=== PATIENT | male | born 1990 | race Asian ===

== ENCOUNTER 2018-08-18 02:43 | Inpatient (IN) | payer SELFPAY ==
[2018-08-18] MEDS ORDERED: MORPHINE SULFATE 10 MG/ML INJ IV ONE ×2 (06:28→10:51)
[2018-08-18] MEDS ORDERED: ONDANSETRON HCL INJ/PF 4 MG/2 ML SDV IV ONE ×2 (06:28→10:51)
[2018-08-18] MEDS ORDERED: NORMAL SALINE 1000 ML 1,000 ML IV ONE ×3 (06:28→08:20)
--- NOTE | 2018-08-18 06:41 | ER Document Report ---
Entered by MILAN POLLACK SCRIBE 08/18/18 0636 Acting as scribe for:RANDY HUNTER MD ED General - General Chief Complaint: Abdominal Pain Stated Complaint: STOMACH PAIN Time Seen by Provider: 08/18/18 06:11 Mode of Arrival: Ambulatory Information source: Patient Notes: Patient is a 28 year old male with a history of gastroschisis repair presents to the emergency department complaining of abdominal pain and nausea onset 2 days ago. Patient states the pain is located around is old surgical site and describes the pain as "extreme" that is exacerbated with coughing and walking. He states he has not eaten in the last 24 hours. He also reports a normal, small bowel movement before arrival to the emergency department. He denies any vomiting or fevers. TRAVEL OUTSIDE OF THE [place] IN LAST 30 DAYS: No - Related Data Allergies/Adverse Reactions: No Known Allergies Allergy (Unverified 08/18/18 06:28) Past Medical History - General Information source: Patient - Social History Smoking Status: Current Some Day Smoker Cigarette use (# per day): Yes Chew tobacco use (# tins/day): No Frequency of alcohol use: None Drug Abuse: None Occupation: Cellphone avionic technician Family History: Reviewed & Not Pertinent Patient has suicidal ideation: No Patient has homicidal ideation: No Past Surgical History: Reports: Hx Abdominal Surgery - gastroschisis repair as Review of Systems - Review of Systems Constitutional: No symptoms reported EENT: No symptoms reported Cardiovascular: No symptoms reported Respiratory: No symptoms reported Gastrointestinal: See HPI, Abdominal pain, Nausea Genitourinary: No symptoms reported Male Genitourinary: No symptoms reported Musculoskeletal: No symptoms reported Skin: No symptoms reported Hematologic/Lymphatic: No symptoms reported Neurological/Psychological: No symptoms reported -: Yes All other systems reviewed and negative Physical Exam - Vital signs Vitals: Temp Pulse Resp BP Pulse Ox 98.5 F 106 H 20 146/86 H 95 08/18/18 03:00 08/18/18 03:00 08/18/18 03:00 08/18/18 03:00 08/18/18 03:00 - Notes Notes: GENERAL: Alert, interacts well. No acute distress. HEAD: Normocephalic, atraumatic. EYES: Pupils equal, round, and reactive to light. Extraocular movements intact. ENT: Oral mucosa moist, tongue midline. NECK: Full range of motion. Supple. Trachea midline. LUNGS: Clear to auscultation bilaterally, no wheezes, rales, or rhonchi. No respiratory distress. HEART: Regular rate and rhythm. No murmurs, gallops, or rubs. ABDOMEN: Soft. Diffusely tender to palpation, worse in the RLQ with rebounding. Non-distended. Markedly decreased bowel sounds. Resonant to percussion. No guarding or rigidity. EXTREMITIES: Moves all 4 extremities spontaneously. NEUROLOGICAL: Alert and oriented x3. Normal speech. PSYCH: Normal affect, normal mood. SKIN: Warm, dry, normal turgor. No rashes or lesions noted. Course - Vital Signs Vital signs: Temp Pulse Resp BP Pulse Ox 98.5 F 106 H 18 133/98 H 97 08/18/18 03:00 08/18/18 03:00 08/18/18 09:27 08/18/18 08:01 08/18/18 09:25 - Laboratory Result Diagrams: 08/18/18 06:35 08/18/18 06:35 Laboratory results interpreted by me: 08/18/18 08/18/18 08/18/18 06:35 06:35 07:40 WBC 14.1 H RBC 5.56 H Hgb 17.9 H Hct 51.6 H Seg Neutrophils % 83.0 H Lymphocytes % 11.1 L Absolute Neutrophils 11.7 H Glucose 121 H Calcium 10.4 H Albumin 5.1 H Urine Protein 30 H Urine Ketones TRACE H - Diagnostic Test Radiology reviewed: Image reviewed, Reports reviewed - Acute abdominal series showed multiple air-fluid levels suggesting possible small bowel obstruction. CT scan of the abdomen pelvis with oral and IV contrast shows partial small bowel obstruction and malrotation of the small intestine. - Consults Dr. Talbot Time consulted: 10:20 Consulted provider: will come to ER Discharge - Discharge Clinical Impression: Partial small bowel obstruction, Congenital malrotation of intestine Abdominal pain Qualifiers: Abdominal location: generalized Qualified Code(s): R10.84 - Generalized abdominal pain Condition: Stable Disposition: ADMITTED INPATIENT Admitting Provider: Surgicalist Unit Admitted: Surgical Floor Scribe Attestation: 08/18/18 06:42 I personally performed the services described in the documentation, reviewed and edited the documentation which was dictated to the scribe in my presence, and it accurately records my words and actions. I personally performed the services described in the documentation, reviewed and edited the documentation which was dictated to the scribe in my presence, and it accurately records my words and actions.
[2018-08-18] MEDS ORDERED: MORPHINE SULFATE 10 MG/ML INJ ONE (06:48)
[2018-08-18] MEDS ORDERED: ONDANSETRON HCL INJ/PF 4 MG/2 ML SDV ONE (06:48)
[2018-08-18 06:56] LABS: ABSOLUTE BASOPHILS # (AUTO) 0.1 10^3/uL (0.0-0.2); ABSOLUTE LYMPHOCYTES (AUTO) 1.6 10^3/uL (0.5-4.7); ABSOLUTE MONOCYTES (AUTO) 0.8 10^3/uL (0.1-1.4); ABSOLUTE NEUT (AUTO) 11.7 10^3/uL (1.7-8.2); BASOPHILS % (AUTO) 0.4 % (0-2); EOSINOPHILS % (AUTO) 0.1 % (0-6); HEMATOCRIT 51.6 % (37.9-51.0); HEMOGLOBIN 17.9 g/dL (13.5-17.0); LYMPHOCYTES % (AUTO) 11.1 % (13-45); MEAN CORPUSCULAR HEMOGLOBIN 32.1 pg (27.0-33.4); MEAN CORPUSCULAR HGB CONC 34.6 g/dL (32.0-36.0); MEAN CORPUSCULAR VOLUME 93 fl (80-97); MONOCYTES % (AUTO) 5.4 % (3-13); PLATELET COUNT 378 10^3/uL (150-450); RED BLOOD COUNT 5.56 10^6/uL (4.35-5.55); RED CELL DISTRIBUTION WIDTH 12.9 % (11.5-14.0); TOTAL CELLS COUNTED % (AUTO) 100 %; WHITE BLOOD COUNT 14.1 10^3/uL (4.0-10.5)
[2018-08-18 07:07] LABS: ALANINE AMINOTRANSFERASE 25 U/L (21-72); ALBUMIN 5.1 g/dL (3.5-5.0); ALKALINE PHOSPHATASE 86 U/L (38-126); ANION GAP 15 (5-19); ASPARTATE AMINO TRANSFERASE 22 U/L (17-59); BILIRUBIN,DIRECT 0.4 mg/dL (0.0-0.4); BILIRUBIN,TOTAL 0.6 mg/dL (0.2-1.3); BLOOD UREA NITROGEN 12 mg/dL (7-20); CALCIUM 10.4 mg/dL (8.4-10.2); CARBON DIOXIDE 26 mmol/L (22-30); CHLORIDE 99 mmol/L (98-107); GLUCOSE 121 mg/dL (75-110); LIPASE 49.8 U/L (23-300); POTASSIUM 4.4 mmol/L (3.6-5.0); SODIUM 139.8 mmol/L (137-145); TOTAL PROTEIN 8.1 g/dL (6.3-8.2)
--- NOTE | 2018-08-18 07:15 | RADIOLOGY REPORT (SQ) ---
EXAM: X-ray abdomen supine and erect with chest CLINICAL DATA: 28-year-old male with abdominal pain TECHNICAL DATA: Three x-ray images of the chest and abdomen were performed including a PA radiograph of the chest as well as supine and upright views of the abdomen. This study was performed on 08/18/2018 at 6:49 AM. Comparison: None. FINDINGS: The lungs are well expanded. The cardiac silhouette is within normal limits. There is no focal consolidation, pleural effusion or pneumothorax. The costophrenic sulci are clear. There are multiple borderline dilated air-filled loops of small bowel demonstrating differential air-fluid levels on the upright projection. There is no evidence of free intraperitoneal air. There does appear to be air and fecal residue in the region of the rectum. Overall, there is a paucity of air in the colon. Overall findings are concerning for a mid to distal small bowel obstruction. No pathologic abdominal or pelvic calcifications are identified. The psoas margins are preserved. There appears to be elongation of the liver suggesting possible hepatomegaly. No acute osseous abnormalities are identified. IMPRESSION: 1. No evidence of acute intrathoracic disease.. 2. Findings suspicious for a mid to distal small bowel obstruction. 3. Suspect possible hepatomegaly.
[2018-08-18 08:01] LABS: AMORPHOUS SEDIMENT,URINE TRACE /HPF; APPEARANCE,URINE SLIGHTLY-CLOUDY; BILIRUBIN,URINE NEGATIVE (NEGATIVE); COLOR,URINE AMBER; GLUCOSE, URINE NEGATIVE (NEGATIVE); KETONES,URINE TRACE mg/dL (NEGATIVE); LEUKOCYTE ESTERASE,URINE NEGATIVE (NEGATIVE); NITRITE,URINE NEGATIVE (NEGATIVE); PROTEIN,URINE 30 mg/dL (NEGATIVE); UROBILINOGEN,URINE NEGATIVE mg/dL (<2.0)
--- NOTE | 2018-08-18 10:28 | RADIOLOGY REPORT (SQ) ---
EXAM DESCRIPTION: CT ABD/PELVIS WITH IV ORAL COMPLETED DATE/TIME: 08/18/2018 10:10 am REASON FOR STUDY: SBO COMPARISON: None. TECHNIQUE: CT scan of the abdomen and pelvis performed with intravenous and oral contrast using darlene kaci scanning technique with dynamic intravenous contrast injection. Images reviewed with lung, soft t issue, and bone windows. Reconstructed coronal and sagittal MPR images reviewed. Delayed images for e valuation of the urinary system also acquired. All images stored on PACS. All CT scanners at this facility use dose modulation, iterative reconstruction, and/or weight based d osing when appropriate to reduce radiation dose to as low as reasonably achievable (ALARA). [facility]: Dose Right [facility]: CareDose [facility]: Dose Right [facility]: Teradose 4D [facility]: ShangPin CONTRAST TYPE AND DOSE: contrast/concentration: Isovue 350.00 mg/ml; Total Contrast Delivered: 87.0 ml; Total Saline Delivered: 69.0 ml RENAL FUNCTION: GFR > 60. RADIATION DOSE: CT Rad equipment meets quality standard of care and radiation dose reduction techniq ues were employed. CTDIvol: NaN - NaN mGy. DLP: 0 mGy-cm. . LIMITATIONS: None. FINDINGS: LOWER CHEST: No significant findings. No nodules or infiltrates. LIVER: Normal size. No masses. No dilated ducts. SPLEEN: Normal size. No focal lesions. PANCREAS: No masses. No significant calcifications. No adjacent inflammation or peripancreatic fluid collections. Pancreatic duct not dilated. GALLBLADDER: No identified stones by CT criteria. No inflammatory changes to suggest cholecystitis. ADRENAL GLANDS: No significant masses or asymmetry. RIGHT KIDNEY AND URETER: No solid masses. No significant calcifications. No hydronephrosis or hyd roureter. LEFT KIDNEY AND URETER: No solid masses. No significant calcifications. No hydronephrosis or hydr oureter. AORTA AND VESSELS: See below. RETROPERITONEUM: No retroperitoneal adenopathy, hemorrhage or masses. BOWEL AND PERITONEAL CAVITY: Dilated loops of small bowel with gas fluid levels. No clear transition point. Distal duodenum is not visualized to left of midline. SMA is to the right of the SMV. No a scites or free air. APPENDIX: Not visualized. PELVIS: Small amount of free fluid. ABDOMINAL WALL: No masses. No hernias. BONES: No significant or acute findings. OTHER: No other significant finding. IMPRESSION: Partial small bowel obstruction associated with intestinal malrotation. COMMENT: Findings were called to Dr. Barger. TECHNICAL DOCUMENTATION: JOB ID: [id number] Quality ID # [id number]: Final reports with documentation of one or more dose reduction techniques (e.g., Au tomated exposure control, adjustment of the mA and/or kV according to patient size, use of iterative reconstruction technique) 2010 [employer]- All Rights Reserved Reading location - IP/workstation name: [email or web address]
--- NOTE | 2018-08-18 11:30 | RADIOLOGY REPORT (SQ) ---
EXAM DESCRIPTION: CHEST SINGLE VIEW COMPLETED DATE/TIME: 08/18/2018 11:22 am REASON FOR STUDY: NG tube placement confirmation COMPARISON: None. EXAM PARAMETERS: NUMBER OF VIEWS: One view. TECHNIQUE: Single frontal radiographic view of the upper abdomen and lower chest acquired. RADIATION DOSE: NA LIMITATIONS: None. FINDINGS: Nasogastric tube tip overlies the stomach. IMPRESSION: Nasogastric tube in the stomach. TECHNICAL DOCUMENTATION: JOB ID: [id number] [employer]- All Rights Reserved Reading location - IP/workstation name: [email or web address]
[2018-08-18] MEDS ORDERED: ONDANSETRON HCL INJ/PF 4 MG/2 ML SDV IV PRN (14:50)
[2018-08-18] MEDS: MORPHINE SULFATE 10 MG/ML INJ IV PRN ×3 (16:22→23:58)
[2018-08-18] MEDS: DEXTROSE 5%-LACTATED RINGERS 1,000 ML IV PRN ×2 (16:22→23:12)
--- NOTE | 2018-08-18 16:53 | PDOC H&P ---
History of Present Illness Admission Date/PCP: 08/18/18 10:46 Patient complains of: abdominal pains History of Present Illness: AYUSH LONG is a 28 year old malewith history of gastroschisis when c/o abdomonal pains 2 days ago associated with nausea. Today pains worsened and went to ED. Had CT scan of abd/pelvis which showed partial SBO. He had a small BM and flatus this am.. Denies fever/chills. Pains are usually episodic/crampy. Past Surgical History Past Surgical History: Reports: Other - surgery for gastroschisis as a in the [facility]. Social History Smoking Status: Former Smoker Last Time Smoked: 08/14/2018 Frequency of Alcohol Use: Occasional Hx Recreational Drug Use: No Hx Prescription Drug Abuse: No - Advance Directive Resuscitation Status: Full Code Family History Family History: Reviewed & Not Pertinent Parental Family History Reviewed: Yes Children Family History Reviewed: No Sibling(s) Family History Reviewed.: No Medication/Allergy Home Medications: No Home Medications 08/18/18 Allergies/Adverse Reactions: No Known Allergies Allergy (Unverified 08/18/18 06:28) Review of Systems Constitutional: PRESENT: as per HPI Eyes: PRESENT: other - no visual/hearing changes Cardiovascular: PRESENT: other - no chest pains/cough Gastrointestinal: PRESENT: abdominal pain, nausea Physical Exam Vital Signs: Temp Pulse Resp BP Pulse Ox 98.0 F 86 15 145/96 H 96 08/18/18 13:18 08/18/18 13:18 08/18/18 13:18 08/18/18 13:18 08/18/18 13:18 Intake & Output 08/17/18 08/18/18 08/19/18 06:59 06:59 06:59 Intake Total 3000 Balance 3000 Weight 76.5 kg 76.4 kg General appearance: PRESENT: severe distress Head exam: PRESENT: atraumatic Eye exam: PRESENT: conjunctiva pink Mouth exam: PRESENT: moist Neck exam: PRESENT: full ROM Respiratory exam: PRESENT: clear to auscultation gilson Cardiovascular exam: PRESENT: tachycardia Pulses: PRESENT: normal radial pulses Vascular exam: PRESENT: normal capillary refill GI/Abdominal exam: PRESENT: soft, tenderness - epigastric area Rectal exam: PRESENT: deferred Extremities exam: PRESENT: full ROM Musculoskeletal exam: PRESENT: ambulatory Neurological exam: PRESENT: alert, oriented to person, oriented to place, oriented to time, oriented to situation Psychiatric exam: PRESENT: appropriate affect Skin exam: PRESENT: normal color, warm Results Laboratory Results: 08/18/18 06:35 08/18/18 06:35 08/18/18 08/18/18 08/18/18 06:35 06:35 06:35 WBC 14.1 H RBC 5.56 H Hgb 17.9 H Hct 51.6 H MCV 93 MCH 32.1 MCHC 34.6 RDW 12.9 Plt Count 378 Seg Neutrophils % 83.0 H Lymphocytes % 11.1 L Monocytes % 5.4 Eosinophils % 0.1 Basophils % 0.4 Absolute Neutrophils 11.7 H Absolute Lymphocytes 1.6 Absolute Monocytes 0.8 Absolute Eosinophils 0.0 Absolute Basophils 0.1 Sodium 139.8 Potassium 4.4 Chloride 99 Carbon Dioxide 26 Anion Gap 15 BUN 12 Creatinine 0.79 Est GFR ( Amer) > 60 Est GFR (Non-Af Amer) > 60 Glucose 121 H Lactic Acid 1.5 Calcium 10.4 H Total Bilirubin 0.6 AST 22 ALT 25 Alkaline Phosphatase 86 Total Protein 8.1 Albumin 5.1 H Lipase 49.8 Urine Color Urine Appearance Urine pH Ur Specific [place] Urine Protein Urine Glucose (UA) Urine Ketones Urine Blood Urine Nitrite Ur Leukocyte Esterase Urine WBC (Auto) Urine RBC (Auto) 08/18/18 07:40 WBC RBC Hgb Hct MCV MCH MCHC RDW Plt Count Seg Neutrophils % Lymphocytes % Monocytes % Eosinophils % Basophils % Absolute Neutrophils Absolute Lymphocytes Absolute Monocytes Absolute Eosinophils Absolute Basophils Sodium Potassium Chloride Carbon Dioxide Anion Gap BUN Creatinine Est GFR ( Amer) Est GFR (Non-Af Amer) Glucose Lactic Acid Calcium Total Bilirubin AST ALT Alkaline Phosphatase Total Protein Albumin Lipase Urine Color BREANNA Urine Appearance SLIGHTLY-CLOUDY Urine pH 5.0 Ur Specific [place] 1.030 Urine Protein 30 H Urine Glucose (UA) NEGATIVE Urine Ketones TRACE H Urine Blood NEGATIVE Urine Nitrite NEGATIVE Ur Leukocyte Esterase NEGATIVE Urine WBC (Auto) 1 Urine RBC (Auto) 2 Impressions: Chest X-Ray 08/18/18 00:00 IMPRESSION: Nasogastric tube in the stomach. Acute Abdomen Series 08/18/18 06:29 IMPRESSION: 1. No evidence of acute intrathoracic disease.. 2. Findings suspicious for a mid to distal small bowel obstruction. 3. Suspect possible hepatomegaly. Abdomen/Pelvis CT 08/18/18 07:23 IMPRESSION: Partial small bowel obstruction associated with intestinal malrotation. Assessment & Plan - Diagnosis (2) Abdominal pain Qualifiers: Abdominal location: generalized Qualified Code(s): R10.84 - Generalized abdominal pain Is this a current diagnosis for this admission?: Yes (3) Congenital malrotation of intestine Is this a current diagnosis for this admission?: Yes (4) Partial small bowel obstruction Is this a current diagnosis for this admission?: Yes - Time Time Spent: 30 to 50 Minutes - Inpatient Certification Medical Necessity: Need For IV Fluids, Need for Pain Control, Need for Surgery, Risk of Complication if Not Cared For in Hospital - Plan Summary Plan Summary: Just ordered SBFT to see area of transition and/or relieve partial obstruction Keep NGT Re-evaluate post SBFT
[2018-08-19] MEDS: MORPHINE SULFATE 10 MG/ML INJ IV PRN (04:03)
[2018-08-19 04:37] LABS: ABSOLUTE LYMPHOCYTES (AUTO) 1.8 10^3/uL (0.5-4.7); ABSOLUTE MONOCYTES (AUTO) 1.3 10^3/uL (0.1-1.4); ABSOLUTE NEUT (AUTO) 7.3 10^3/uL (1.7-8.2); BASOPHILS % (AUTO) 0.4 % (0-2); EOSINOPHILS % (AUTO) 0.3 % (0-6); HEMATOCRIT 47.2 % (37.9-51.0); HEMOGLOBIN 16.2 g/dL (13.5-17.0); LYMPHOCYTES % (AUTO) 17.3 % (13-45); MEAN CORPUSCULAR HGB CONC 34.3 g/dL (32.0-36.0); MEAN CORPUSCULAR VOLUME 93 fl (80-97); MONOCYTES % (AUTO) 12.2 % (3-13); PLATELET COUNT 331 10^3/uL (150-450); RED BLOOD COUNT 5.06 10^6/uL (4.35-5.55); RED CELL DISTRIBUTION WIDTH 12.9 % (11.5-14.0); SEGMENTED NEUTROPHILS % (AUTO) 69.8 % (42-78); TOTAL CELLS COUNTED % (AUTO) 100 %; WHITE BLOOD COUNT 10.5 10^3/uL (4.0-10.5)
[2018-08-19 04:53] LABS: ALANINE AMINOTRANSFERASE 21 U/L (21-72); ALBUMIN 4.1 g/dL (3.5-5.0); ALKALINE PHOSPHATASE 59 U/L (38-126); ANION GAP 10 (5-19); ASPARTATE AMINO TRANSFERASE 13 U/L (17-59); BILIRUBIN,DIRECT 0.2 mg/dL (0.0-0.4); BILIRUBIN,TOTAL 0.6 mg/dL (0.2-1.3); BLOOD UREA NITROGEN 9 mg/dL (7-20); CALCIUM 9.6 mg/dL (8.4-10.2); CARBON DIOXIDE 30 mmol/L (22-30); CHLORIDE 101 mmol/L (98-107); GLUCOSE 121 mg/dL (75-110); POTASSIUM 3.8 mmol/L (3.6-5.0); SODIUM 141.2 mmol/L (137-145); TOTAL PROTEIN 6.3 g/dL (6.3-8.2)
[2018-08-19] MEDS: DEXTROSE 5%-LACTATED RINGERS 1,000 ML IV PRN ×2 (06:17→14:21)
--- NOTE | 2018-08-19 07:42 | RADIOLOGY REPORT (SQ) ---
EXAM DESCRIPTION: X-ray abdomen 1 view CLINICAL DATA: 28-year-old male with small bowel obstruction. TECHNICAL DATA: A single AP supine x-ray of the abdomen was performed on 08/19/2018 at 7:05 AM. Comparison: Prior upper GI study performed on 08/18/2018. FINDINGS: There is persistent oral contrast present throughout multiple small bowel loops which are mildly distended and borderline dilated. No significant contrast is appreciated in the colon. The bowel gas pattern is nonspecific but raises concern for a partial small bowel obstruction. There is contrast present within the urinary bladder. No pathologic abdominal or pelvic calcifications are identified. No focal soft tissue abnormalities are seen. No acute osseous abnormalities are identified. IMPRESSION: Persistent oral contrast present throughout multiple distended and mildly dilated small bowel loops concerning for at least a partial small bowel obstruction.
--- NOTE | 2018-08-19 12:40 | PDOC PROGRESS REPORT ---
Subjective Progress Note for:: 08/19/18 Subjective:: feeling better after NGT hooked back to suction at midnight Feels like he is going to have a BM Did not take pain meds since 4 am Feels thirsty Reason For Visit: PARTIAL SMALL BOWEL OBSTRUCTION,HISTORY OF Physical Exam Vital Signs: Temp Pulse Resp BP Pulse Ox 98.3 F 92 16 128/88 H 97 08/19/18 07:41 08/19/18 07:41 08/19/18 07:41 08/19/18 07:41 08/19/18 07:41 Intake & Output 08/18/18 08/19/18 08/20/18 06:59 06:59 06:59 Intake Total 3000 Output Total 2900 Balance 100 Weight 76.5 kg 76.4 kg Exam: abd is less distended and soft. Mild tenderness RLQ NGT in place Results Laboratory Results: 08/19/18 04:12 08/19/18 04:12 08/19/18 08/19/18 04:12 04:12 WBC 10.5 RBC 5.06 Hgb 16.2 Hct 47.2 MCV 93 MCH 32.0 MCHC 34.3 RDW 12.9 Plt Count 331 Seg Neutrophils % 69.8 Lymphocytes % 17.3 Monocytes % 12.2 Eosinophils % 0.3 Basophils % 0.4 Absolute Neutrophils 7.3 Absolute Lymphocytes 1.8 Absolute Monocytes 1.3 Absolute Eosinophils 0.0 Absolute Basophils 0.0 Sodium 141.2 Potassium 3.8 Chloride 101 Carbon Dioxide 30 Anion Gap 10 BUN 9 Creatinine 0.77 Est GFR ( Amer) > 60 Est GFR (Non-Af Amer) > 60 Glucose 121 H Calcium 9.6 Total Bilirubin 0.6 AST 13 L ALT 21 Alkaline Phosphatase 59 Total Protein 6.3 Albumin 4.1 Impressions: Chest X-Ray 08/18/18 00:00 IMPRESSION: Nasogastric tube in the stomach. Acute Abdomen Series 08/18/18 06:29 IMPRESSION: 1. No evidence of acute intrathoracic disease.. 2. Findings suspicious for a mid to distal small bowel obstruction. 3. Suspect possible hepatomegaly. Abdomen/Pelvis CT 08/18/18 07:23 IMPRESSION: Partial small bowel obstruction associated with intestinal malrotation. KUB X-Ray 08/19/18 00:00 IMPRESSION: Persistent oral contrast present throughout multiple distended and mildly dilated small bowel loops concerning for at least a partial small bowel obstruction. Assessment & Plan - Diagnosis (2) Abdominal pain Qualifiers: Abdominal location: generalized Qualified Code(s): R10.84 - Generalized abdominal pain Is this a current diagnosis for this admission?: Yes (3) Congenital malrotation of intestine Is this a current diagnosis for this admission?: Yes (4) Partial small bowel obstruction Is this a current diagnosis for this admission?: Yes - Time Time Spent with patient: 15-24 minutes - Inpatient Certification Medical Necessity: Need Close Monitoring Due to Risk of Patient Decompensation, Need For IV Fluids, Need for Pain Control, Risk of Complication if Not Cared For in Hospital - Plan Summary Plan Summary: A/ KUB this am showed gastrograffin in small bowel but not yet in the colon WBC normal P/ Continue NGT for now Increase IVF today Expect SBO to resolve but mother told me that patient had another operation for bowel obstruction at age 12. So, we'll watch closely.
--- NOTE | 2018-08-20 00:02 | RADIOLOGY REPORT (SQ) ---
EXAM DESCRIPTION: Small bowel follow through, XR CLINICAL HISTORY: SBO COMPARISON: None. FINDINGS: [employer] Coordinator view demonstrated contrast within the bladder. There are dilated small bowel loops within the right mid abdomen with prominent mucosal folds. NG tube courses subdiaphragmatically. Images were obtained immediately after administration of barium contrast, 15 minutes, 30 minutes, 45 minutes, 1 hour and 45 minutes, 4 hours, 7hours. At 45 minutes, the majority of the contrast is still located within the stomach with minimal opacification of proximal duodenum. Image obtained at 1 hour 45 minutes demonstrates contrast within small bowel loops in the mid and inferior abdomen. Small bowel loops are dilated with prominent of the mucosal folds. No contrast is noted within the colon. At 7 hours similar findings were noted. IMPRESSION: Nonvisualization of the colon by 7 hours compatible with a small bowel obstruction. Recent CT demonstrated findings compatible with a small bowel obstruction.
[2018-08-20 05:06] LABS: ABSOLUTE EOSINOPHILS # (AUTO) 0.1 10^3/uL (0.0-0.6); ABSOLUTE LYMPHOCYTES (AUTO) 1.9 10^3/uL (0.5-4.7); ABSOLUTE MONOCYTES (AUTO) 0.8 10^3/uL (0.1-1.4); ABSOLUTE NEUT (AUTO) 4.8 10^3/uL (1.7-8.2); BASOPHILS % (AUTO) 0.6 % (0-2); EOSINOPHILS % (AUTO) 0.9 % (0-6); HEMATOCRIT 39.9 % (37.9-51.0); LYMPHOCYTES % (AUTO) 25.2 % (13-45); MEAN CORPUSCULAR HEMOGLOBIN 31.9 pg (27.0-33.4); MEAN CORPUSCULAR VOLUME 94 fl (80-97); MONOCYTES % (AUTO) 10.7 % (3-13); PLATELET COUNT 260 10^3/uL (150-450); RED BLOOD COUNT 4.26 10^6/uL (4.35-5.55); RED CELL DISTRIBUTION WIDTH 12.7 % (11.5-14.0); SEGMENTED NEUTROPHILS % (AUTO) 62.6 % (42-78); TOTAL CELLS COUNTED % (AUTO) 100 %; WHITE BLOOD COUNT 7.7 10^3/uL (4.0-10.5)
[2018-08-20 05:20] LABS: HEMOGLOBIN 13.6 g/dL (13.5-17.0)
[2018-08-20] MEDS: DEXTROSE 5%-LACTATED RINGERS 1,000 ML IV PRN (05:29)
[2018-08-20 05:31] LABS: ANION GAP 5 (5-19); BLOOD UREA NITROGEN 9 mg/dL (7-20); CALCIUM 8.8 mg/dL (8.4-10.2); CARBON DIOXIDE 31 mmol/L (22-30); CHLORIDE 103 mmol/L (98-107); GLUCOSE 96 mg/dL (75-110); POTASSIUM 3.3 mmol/L (3.6-5.0); SODIUM 138.9 mmol/L (137-145)
--- NOTE | 2018-08-20 08:10 | PDOC PROGRESS REPORT ---
Subjective Progress Note for:: 08/20/18 Subjective:: comfortable; BM today x 2 Reason For Visit: PARTIAL SMALL BOWEL OBSTRUCTION,HISTORY OF Physical Exam Vital Signs: Temp Pulse Resp BP Pulse Ox 98.8 F 74 17 119/71 98 08/19/18 23:28 08/19/18 23:28 08/19/18 23:28 08/19/18 23:28 08/19/18 23:28 Intake & Output 08/19/18 08/20/18 08/21/18 06:59 06:59 06:59 Intake Total 3000 100 Output Total 2900 650 Balance 100 -550 Weight 76.4 kg 77.9 kg General appearance: PRESENT: no acute distress, well-developed GI/Abdominal exam: PRESENT: normal bowel sounds, soft Results Laboratory Results: 08/20/18 03:50 08/20/18 03:50 08/20/18 08/20/18 03:50 03:50 WBC 7.7 RBC 4.26 L Hgb 13.6 D Hct 39.9 MCV 94 MCH 31.9 MCHC 34.0 RDW 12.7 Plt Count 260 Seg Neutrophils % 62.6 Lymphocytes % 25.2 Monocytes % 10.7 Eosinophils % 0.9 Basophils % 0.6 Absolute Neutrophils 4.8 Absolute Lymphocytes 1.9 Absolute Monocytes 0.8 Absolute Eosinophils 0.1 Absolute Basophils 0.0 Sodium 138.9 Potassium 3.3 L Chloride 103 Carbon Dioxide 31 H Anion Gap 5 BUN 9 Creatinine 0.68 Est GFR ( Amer) > 60 Est GFR (Non-Af Amer) > 60 Glucose 96 Calcium 8.8 Impressions: Chest X-Ray 08/18/18 00:00 IMPRESSION: Nasogastric tube in the stomach. Small Bowel X-Ray 08/18/18 00:00 IMPRESSION: Nonvisualization of the colon by 7 hours compatible with a small bowel obstruction. Recent CT demonstrated findings compatible with a small bowel obstruction. Acute Abdomen Series 08/18/18 06:29 IMPRESSION: 1. No evidence of acute intrathoracic disease.. 2. Findings suspicious for a mid to distal small bowel obstruction. 3. Suspect possible hepatomegaly. Abdomen/Pelvis CT 08/18/18 07:23 IMPRESSION: Partial small bowel obstruction associated with intestinal malrotation. KUB X-Ray 08/19/18 00:00 IMPRESSION: Persistent oral contrast present throughout multiple distended and mildly dilated small bowel loops concerning for at least a partial small bowel obstruction. Assessment & Plan - Diagnosis (1) Partial small bowel obstruction Is this a current diagnosis for this admission?: Yes - Plan Summary Plan Summary: A/ Resolved partial mechanical SBO BM x2 today On clear liquid diet P/ Home today Full liquid diet at home Advance to low fiber diet, lifetime at home Can have cooked veggies (grilled, steamed, or microwaved) F/u in clinic in 2 weeks
--- NOTE | 2018-08-20 09:10 | DISCHARGE SUMMARY E ---
Discharge Summary NAME: AYUSH LONG : 1990 AGE: 28Y ADMITTED: 08/18/2018 DISCHARGED: 08/20/2018 FINAL DIAGNOSES: 1. PARTIAL MECHANICAL SMALL BOWEL OBSTRUCTION. 2. STATUS POST REPAIR OF GASTROSCHISIS. 3. STATUS POST EXPLORATORY LAPAROTOMY at age 12. COMPLICATIONS: None. PROCEDURES: None. HOSPITAL COURSE: This is a healthy 28-year-old male with a history of gastroschisis repaired at . He had a mechanical obstruction of the small bowel at age 12 and underwent a laparotomy at that time. He presented to the hospital on 08/18/2018, complaining of abdominal distention, nausea, vomiting, and obstipation. He was kept NPO on IV fluids. CT scan was done with IV and oral contrast, and on 08/19/2018 in the evening and 08/20/2018 in the morning, the patient had multiple bowel movements with normal stools, decompressed abdomen. No nausea or vomiting. His diet was started with clear liquids, then advanced to full liquid diet. DISCHARGE ORDERS: The patient was discharged to home on 08/20/2018. He was discharged home on a full liquid diet with recommendations to advance to low fiber diet at home. Follow up in the office in two weeks. The patient is recommended to avoid fiber, or to cook the vegetables as steamed, boiled, grilled, or microwaved. DICTATING PHYSICIAN: ELENI ESPINOZA M.D. [id number] PHY#: [id number] ID: [id number] JOB#: [id number] ACCT: [id number] cc:Erich MANNING M.D. > MTDD
[2018-08-20 11:40] VITALS: BP 119/71
== END 2018-08-20 12:48 | disposition home or self-care (01) | DRG 390 ==
LOC: ER 02:43 → EH 10:46 → 5 13:16
PROVIDERS: ADMIT Surgery; ATTEND Surgery
PROC: 0D9670Z Drainage of Stomach with Drainage Device, Via Natural or Artificial Opening (ICD-10-PCS; principal; 2018-08-18)
DX: K56.690 Other partial intestinal obstruction (principal); Z87.891 Personal history of nicotine dependence
CPT/HCPCS: 36415; 71045; 74018; 74022; 74177; 74250; 80048; 80053; 81001; 83605; 83690; 85025; 96361; 96374; 96375; 99285; J2270; J2405; J7030; J7121